=== PATIENT | male | born 1980 | race Caucasian/White ===

== ENCOUNTER 2021-12-14 16:38 | Emergency (ER) | payer BC ==
[2021-12-14] MEDS ORDERED: Lidocaine 1% 30 ML SDV INJECT ONE (16:45)
== END 2021-12-14 17:07 | disposition home or self-care (01) ==
LOC: LB.ED 16:38
DX: S60.456A Superficial foreign body of right little finger, initial encounter (principal); W45.8XXA Other foreign body or object entering through skin, initial encounter
CPT/HCPCS: 10120; 99283; 99283-25